=== PATIENT | female | born 1955 | race African-American/Black ===

== ENCOUNTER 2018-11-08 19:26 | Emergency (ER) | payer OTHER ==
[~2018-11-08] VITALS: Ht 152.4 cm; Wt 81.6 kg
[~2018-11-08 19:26] MED LIST: ALBU-136 IH; CODE118S2 PO; COZ50 PO; FURO-572 PO; LEVO0.124 PO; LORA10TA19 PO; OXYC5TAB4 PO; [UNRECOGNIZED DRUG - CODE] PO
[2018-11-08 19:31] VITALS: BP 154/87
[2018-11-08] MEDS: ONDANSETRON 4 MG/2 ML VIAL IVP ONE (20:32)
[2018-11-08] MEDS: fentaNYL 0.05 MG/ML VIAL IVP ONE (20:32)
[2018-11-08] MEDS: NACL 0.9% 1,000 ML IV ONE (20:32)
[2018-11-08] MEDS: METOCLOPRAMIDE 10 MG/2 ML INJ VIAL IVP ONE (21:19)
[2018-11-08] MEDS: ACETAMINOPHEN EXTRA STRENGTH 500 MG TAB PO ONE (21:20)
[2018-11-08 21:32] VITALS: BP 144/69
== END 2018-11-08 21:32 | disposition home or self-care (01) ==
LOC: MED 19:26
DX: G89.29 Other chronic pain (principal); M54.9 Dorsalgia, unspecified; R11.2 Nausea with vomiting, unspecified; I10 Essential (primary) hypertension; Z91.040 Latex allergy status; Z79.899 Other long term (current) drug therapy; Z88.8 Allergy status to other drugs, medicaments and biological substances
CPT/HCPCS: 96361; 96374; 96375; 99283; J2405; J2765; J3010; J7030

== ENCOUNTER 2019-11-08 13:03 | Emergency (ER) | payer OTHER ==
[~2019-11-08] VITALS: Ht 152.4 cm; Wt 86.2 kg
[~2019-11-08 13:03] MED LIST changes: -COZ50 PO; +LOSA50TA57 PO
[2019-11-08 13:05] VITALS: BP 134/80
--- NOTE | 2019-11-08 13:22 | NUR ---
PATIENT AMB WITH CANE TO BED 11.
--- NOTE | 2019-11-08 13:28 | NUR ---
64 YEAR OLD FEMALE COMPLAINS OF NAUSEA, VOMITTING, AND DIARRHEA X 1 DAY. PATIENT STATES THAT SHE TAKES MS CONTIN 30MG NORMALLY 3X A DAY BUT HAS RAN OUT OF HER PRESCRIPTION YESTERDAY, HAS BEEN GOING THROUGH WITHDRAWALS CAUSING HER TO THROW UP. PATIENT STATES AFTER THROWING UP MULTIPLE TIMES MID CHEST AREA STARTED TO HURT. PATIENT HAS 10/10 ACHING PAIN IN MID CHEST, SHOULDER, KNEE, AND BACK. PATIENT STATES HISTORY OF SHOULDER SURGERY X 3 TIMES, CHRONIC BACK PAIN, 2 TORN MINISCUS, AND HEART SURGERY IN JUNE 2019. PATIENT ALERT AND ORIENTED, BREATHING EVEN AND UNLABORED. BED IN LOWEST POSITION, LOCKED, BED RAIL UPX1.
--- NOTE | 2019-11-08 13:28 | NUR ---
INFLUENZA SWAP DONE AND PICKEDUP BY LAB.
[2019-11-08] MEDS ORDERED: MORPHINE SULFATE 4 MG/ML SYR IVP ONE (14:05)
[2019-11-08] MEDS ORDERED: ONDANSETRON 4 MG ODT PO ONE (14:05)
[2019-11-08] MEDS ORDERED: MORPHINE SULFATE 4 MG/ML SYR IM ONE (14:10)
[2019-11-08 14:49] VITALS: BP 138/63
--- NOTE | 2019-11-08 14:49 | NUR ---
Note nery in EDM - 11/08/19 at 1453 by NINI DPatient discharged with v/s stable. Written and verbal after care instructions ABOUT OPIATE DEPENDENCE given and explained. Patient alert, oriented and verbalized understanding of instructions. Ambulatory with steady gait*. All questions addressed prior to discharge. ID band removed. Patient advised to follow up with PMD. Rx of ZOFRAN given. Patient educated on indication of medication including possible reaction and side effects. Opportunity to ask questions provided and answered. PATIENT STATED SISTER WILL BE PICKING HER UP FROM HOSPITAL.
== END 2019-11-08 14:49 | disposition home or self-care (01) ==
LOC: MED 13:03
DX: R10.9 Unspecified abdominal pain (principal); R11.2 Nausea with vomiting, unspecified; I10 Essential (primary) hypertension; Z88.8 Allergy status to other drugs, medicaments and biological substances; Z91.09 Other allergy status, other than to drugs and biological substances; Z91.040 Latex allergy status
CPT/HCPCS: 96372; 99283; J2270; Q0162